=== PATIENT | female | born 1990 | race American Indian/Alaskan Native ===

== ENCOUNTER 2021-01-23 08:35 | Emergency (ER) | payer OTHER, BC ==
[2021-01-23 09:18] VITALS: BP 106/69
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
== END 2021-01-23 12:15 | disposition home or self-care (01) ==
LOC: ED 08:35
DX: M54.5 Low back pain (principal); R51.9 Headache, unspecified; Z79.899 Other long term (current) drug therapy; V87.7XXA Person injured in collision between other specified motor vehicles (traffic), initial encounter; Y93.89 Activity, other specified; Y92.488 Other paved roadways as the place of occurrence of the external cause; Y99.8 Other external cause status
CPT/HCPCS: 99281